=== PATIENT | female | born 1990 | race Hispanic/Latino ===

== ENCOUNTER 2025-08-26 23:45 | Emergency (ER) | payer SELFPAY ==
[2025-08-26 23:48] VITALS: BP 109/66
[2025-08-26 23:49] VITALS: BP 110/66
[2025-08-27] VITALS: BP 107/70
[2025-08-27 00:06] VITALS: BMI 18.2
--- NOTE | 2025-08-27 00:08 | ED.GENMED ---
History of Present Illness
General
Chief Complaint: Change in Mental Status
Source: spouse
Time Seen by Provider: 08/27/25 00:05
History of Present Illness
History of Present Illness:
35-year-old female presents to the emergency room with her family in a private vehicle after becoming unresponsive about an hour ago. Patient evidently had an argument with someone which made her very upset. After the argument she stopped
responding to her . He tried to give her some time but she continued to be unresponsive. does not believe the patient would have overdosed on any medication. She does not drink or use recreational drugs. Patient has never had a an
episode like this before. Her does believe she likely has depression though she has never been evaluated by a psychiatrist or had any sort of inpatient treatment.
Translation Services
Preferred Language: Occitan
Tour Production Supervisor service via: Video
Tour Production Supervisor's ID Number: [id number]
Comment: Moo
Past History
Past History
ED Past Medical History: None
ED Past Surgical History: None
Social History
Tobacco: Non-smoker
Alcohol: None
Drug: None
Phy Exam
Physical Exam
Physical Exam:
General: Eyes closed, resists eye opening, no distress
Vitals: unremarkable
Head: Atraumatic
Eyes: Pupils equal, EOMI, actively resists opening eyelids, moves her eyes to avoid the light I am using to check pupillary response
Throat: resist mouth opening
Neck: Trachea midline
Lungs: Clear and equal b/l
Heart: Regular rate, no murmurs
Abd: Soft, Nontender, No pulsatile mass
Neuro: Nonfocal
Skin: Warm, dry, no rash
Extremities: pulses equal b/l, no edema
Course
Orders/Labs/Results
Orders:
Orders
08/27/25 00:08
Test Result ONCE
08/27/25 00:36
Acetaminophen Urgent
Alcohol Urgent
Aspirin level [Salicylate] Urgent
Complete Blood Count/With Diff Urgent
Comprehensive Metabolic Panel Urgent
HCG, Serum Qualitative Screen Urgent
Abnormal Lab Results
08/27/25
00:36
WBC 15.3 H 10^3/uL
(4.8-10.8)
MPV 11.5 H fL
(7.4-10.4)
Abs Immat Gran (auto) 0.1 H 10^3/uL
(0-0.05)
Absolute Neuts (auto) 12.7 H 10^3/uL
(1.4-6.5)
Absolute Monos (auto) 0.9 H 10^3/uL
(0.1-0.6)
Neutrophils % 82.8 H %
(42.2-75.2)
Lymphocytes % 10.1 L %
(20.5-51.1)
Chloride 108 H mmol/L
(98-107)
Glucose 100 H mg/dl
(70-99)
Salicylates < 1.0 L mg/dl
(2.0-20.0)
Acetaminophen < 10 L ug/ml
(10-30)
08/27/25 00:36
08/27/25 00:36
Vital Signs
Initial and Last Documented VS:
Initial Vital Signs
BP
109/66
08/26/25 23:48
Last Documented Vital Signs
Pulse Resp BP Pulse Ox
68 15 103/66 100
08/27/25 02:00 08/27/25 02:00 08/27/25 01:00 08/27/25 00:15
MDM/Problems Addressed
MDM/Problems Addressed:
After my physical exam and while I was explaining the plan to the patient's using the bucket turner the patient took a deep loud inspiration and open her eyes. She is tearful. She is embracing her .
*Pulse Oximetry
SaO2: 100
Oxygen Mode of Delivery: Room air
Patient hypoxic: no
*Critical Care Note
Total Time (30-74mins, 75-104mins- exclusive of procedures): Not Applicable
ED Attending Note
-
Portions of this chart may have been created with voice recognition software.� Occasional wrong word or��sound alike� substitutions may have occurred due to the inherent limitations of voice recognition software.
Discharge Plan
Departure
Patient Disposition: Home (Routine Discharge)
Date of Disposition: 08/27/25
Time of Disposition: 02:05
Patient with high blood pressure during this ER visit?: No
Condition: Good
Discharge Problem:
Altered mental state, Conversion reaction
Instructions: Depression in adults (DC)
Prescriptions:
No Action
cephalexin 500 MG capsule
500 mg PO QID Qty: 40 0RF
Referrals:
NONE,* [Family Provider, Internal Medicine]
Interventions
Interventions:
*General Assessment Last Done: 08/27/25 00:03
*Neglect/Abuse Screening Last Done: 08/26/25 23:59
*ED COVID-19 Vaccine History Last Done: 08/27/25 00:03
*ED Influenza Vaccine History Last Done: 08/27/25 00:03
[facility] Fall Risk Assessment Tool Last Done: 08/27/25 00:06
*Risk Screen - Suicide (C-SSRS) Last Done: 08/26/25 23:59
*Nursing Disposition Last Done: 08/27/25 02:10
ED- Pulmonary Assessment Last Done: 08/27/25 00:24
ED-Psychological Assessment Last Done: 08/27/25 00:25
ED- Neurological Assessment Last Done: 08/27/25 00:24
ED- Cardiac Assessment Last Done: 08/27/25 00:24
ED Swallowing Screen Last Done: 08/27/25 00:24
Discharge Date and Time
Discharge Date/Time: 08/27/25 02:10
Print Language: GEORGIAN
[2025-08-27 01:00] VITALS: BP 103/66
[2025-08-27 01:05] LABS: HCG, Serum Qualitative Screen Negative
[2025-08-27 01:23] LABS: ALT (SGPT) 17 U/L (0-35); AST (SGOT) 20 U/L (14-36); Acetaminophen < 10 ug/ml (10-30); Albumin 4.4 g/dl (3.5-5.0); Alkaline Phosphatase 69 U/L (38-126); Blood Urea Nitrogen 8 mg/dl (7-17); Calcium 8.9 mg/dl (8.4-10.2); Carbon Dioxide 23 mmol/L (22-30); Chloride 108 mmol/L (98-107); Estimated Creatinine Clearance 66 ml/min; Glucose 100 mg/dl (70-99); Potassium 4.1 mmol/L (3.5-5.1); Salicylate < 1.0 mg/dl (2.0-20.0); Sodium 138 mmol/L (135-145); Total Protein 7.4 g/dl (6.3-8.2); eGFR > 60.00
[2025-08-27 01:58] LABS: Hematocrit 37.4 % (37.0-47.0); Hemoglobin 12.9 g/dL (12.0-16.0); Mean Corp Hgb Conc. 34.5 g/dL (33.0-37.0); Mean Corpuscular Volume 86.6 fL (81.0-99.0); Nucleated Red Blood Cells % 0 %; Platelet Count 249 10^3/uL (130-400); Red Cell Dist. Width 12.3 % (11.5-14.5)
[2025-08-27 07:53] LABS: Glucose - Point of Care 99 mg/dl (70-99)
== END 2025-08-27 02:10 | disposition home or self-care (01) ==
LOC: EMR 23:45
PROVIDERS: EMERGENCY PHYSICIAN Emergency Medicine
DX: F44.9 Dissociative and conversion disorder, unspecified (principal)
CPT/HCPCS: 99282; 80053; 80143; 80179; 82077; 82962; 84703; 85025